=== PATIENT | female | born 1995 | race Caucasian/White ===

== ENCOUNTER 2017-05-13 21:43 | Inpatient (IN) | payer MEDICAID ==
[~2017-05-13] VITALS: Ht 167.6 cm; Wt 62.0 kg
--- NOTE | ~2017-05-13 | HP ---
Unit #: [id number] #: [id number] Patient: FRANKI HENDERSON [id number] [address] [address] [id number] I MR#: [id number] NAME: FRANKI HENDERSON ROOM: 02125 Age: 21 Sex: F Admission Date: 05/14/2017 : 1995 Attending Physician: Kimberly Beckett M.D. Referring Physician: No Primary Care Physician Primary Care Physician: No Primary Care Physician HISTORY AND PHYSICAL REVISED REPORT CHIEF COMPLAINT Pyelonephritis, abnormal CBC, dehydration. HISTORY This pleasant 21-year-old female with history of anemia, hepatitis C, is admitted for possible pyelonephritis. The patient was well until two days prior to admission when she developed myalgias, nausea, vomiting with decreased urinary output, diaphoresis, and low back pain bilaterally. Denies urinary symptoms with the above. She presents to this emergency department in sinus tachycardia, with significant pyuria although moderate squamous cells were seen on urinalysis. Labs are notable for normocytic anemia with significant leukocytosis. White blood count is 45 with a normal differential although moderate spherocytes are seen with slight Rouleau formation. In the ER, the patient was bolused with 2 L of saline and given 1 gm of IV Rocephin. Currently feels somewhat improved. The patient states that she was admitted to [facility] 09/2015 for anemia and underwent a bone marrow biopsy, does not know the results. Her mother required splenectomy for what sounds to be some sort of hemolytic anemia. As an aside, the patient does have a history of hepatitis C, was previously abusing heroin and methamphetamines. Now takes illicit pain pills but I believe has not used these for the past two to three days. PAST MEDICAL HISTORY 1. History of anemia requiring bone marrow biopsy, results are unknown. 2. Hepatitis C. ALLERGIES None. HOME MEDICATIONS None. FAMILY HISTORY Anemia with splenomegaly requiring splenectomy. SOCIAL HISTORY The patient lives with her grandmother. She smokes about a half pack per Unit #: [id number] #: [id number] Patient: FRANKI HENDERSON day of tobacco, does not drink alcohol. Was previously injecting heroin, no longer uses heroin. Is buying pain pills off the street, and does have a history of methamphetamine abuse. REVIEW OF SYSTEMS Notable for diaphoresis, myalgias, back pain, decreased urinary output, anemia, hepatitis C, polysubstance abuse. All other systems were reviewed and are otherwise negative. PHYSICAL EXAMINATION GENERAL APPEARANCE: Pleasant, mildly jaundiced appearing 21-year-old female, currently in no acute distress. VITAL SIGNS: Temperature 98.4, pulse 125, respirations 16, blood pressure 97/53. O2 saturation is 99% on room air. HEENT: Eyes PERRLA. Extraocular muscles are intact. Pharynx is benign. NECK: Supple without adenopathy or thyromegaly. CHEST: Clear. BACK: Without CVA tenderness. Negative straight leg raising on exam. CARDIAC: Normal S1 and S2 without murmur. ABDOMEN: Bowel sounds are present. No definite hepatosplenomegaly, tenderness or masses. EXTREMITIES: Without edema. Pedal pulses are present. Difficult for me to check for splinter hemorrhages over the fingernail beds due to nail wallisian. NEUROLOGIC: The patient is awake, alert, oriented. Cranial nerves are intact. Equal strength throughout. DIAGNOSTIC STUDIES LABORATORY: Hematocrit is 26.3, down from a hematocrit of 33.1 in November. White blood count is 45, was 19 in November. Normal MCV and platelet count. Differential of white blood cells show a left shift predominance but otherwise normal. However, slight Rouleau formation and moderate spherocytes are noted. A few atypical lymphocytes also noted. Coags normal. SMA-12 - BUN 28, sodium 131 with a potassium of 3.1, chloride 95, bilirubin of 6.7, down from 8.7 in November. Most of this is indirect bilirubin. Acetaminophen, salicylate and alcohol levels are all negligible. Lactic acid is normal as is lipase. Point of care beta hCG negative. Urine tox screen positive for amphetamines and opiates. Urinalysis - positive leukocyte esterase, nitrates, protein, bile with 10-25 white cells, 2+ bacteria, moderate squamous cells seen. IMAGING: Chest x-ray - no acute disease. CT scan does show splenomegaly and gallstones. ASSESSMENT 1. Questionable pyelonephritis. 2. Dehydration secondary to nausea and vomiting with hypokalemia. 3. Abnormal CBC including normocytic anemia and significant leukocytosis Unit #: [id number] #: [id number] Patient: BEATRIZ,FRANKI with splenomegaly noted on CT scan and jaundice. Rule out hemolytic anemia versus other causes. 4. Hepatitis C. 5. Polysubstance abuse. PLANS 1. IV fluids. 2. Blood, urine, throat cultures. 3. Check LDH, retic count, iron storers, B12, folic acid. 4. Consult hematology. 5. Obtain HIV testing and obtain YANNA along with monospot. 6. Will request bone marrow biopsy results from [facility] in 2014. 7. Replace potassium, check magnesium. 8. Antibiotics. Dictated by Kimberly Beckett M.D. AML/df TD: 05/14/2017 05:16 JOB #: [id number] CC: Roman/invision Please Delete HISTORY AND PHYSICAL Page 1 of 1 X Kimberly Beckett MD HISTORY AND PHYSICAL
--- NOTE | ~2017-05-13 | CO ---
Unit #: [id number] #: [id number] Patient: FRANKI HENDERSON [id number] [facility]. [place], [place] [address] [id number] Eliu MR#: [id number] NAME: FRANKI HENDERSON ROOM: [facility] Age: 21 Sex: F Admission Date: 05/14/2017 : 1995 Attending Physician: Manuel Lee M.D. Primary Care Physician: Kimberly Beckett M.D. Consultation Date: 05/14/2017 CONSULTATION REPORT REASON FOR EVALUATION Anemia, please evaluate. HISTORY OF PRESENT ILLNESS This 21-year-old lady who is currently fairly sedated is only able to answer yes and periodically no and unable to give me much of any history, so the majority of this history was obtained from the chart. Basically, she has been in [facility] where bone marrow aspirate biopsy has been done twice, and she thinks she was told something is destroying her blood. But that is all the diagnosis she knows. She does have a history of hepatitis C and substance abuse to the extreme level from the chart. No past history in this hospital. Otherwise, past history is mainly remarkable for hepatitis C and a hole in her heart according to her. I do not have any documentation. HOME MEDICATIONS None. ALLERGIES None. FAMILY HISTORY Mother had splenectomy for anemia and does not know more than that. SOCIAL HISTORY Lives with grandmother. Smokes a half a pack. No alcohol usage. States that she used heroin currently unknown, and I did not pursue it further. REVIEW OF SYSTEMS Not obtainable mainly due to her drowsiness and states that she is okay. Otherwise, it was not obtainable. PHYSICAL EXAMINATION GENERAL: She looks pale and healthy appearing. LYMPHATICS: No palpable nodes. LUNGS: Crackles. ABDOMEN: I could not appreciate a palpable spleen, although it was difficult. CENTRAL NERVOUS SYSTEM: Difficult to evaluate. PELVIC/BREASTS: Exams not performed. DIAGNOSTIC STUDIES LABORATORY: Glucose 82, BUN 15, creatinine 0.6, sodium 133, potassium 3.2, chloride 103, CO2 of 25, calcium 8.8, magnesium 1.9, albumin 3.8, Unit #: [id number] #: [id number] Patient: FRANKI HENDERSON total bilirubin 4.5, direct bilirubin 1.2, and bilirubin indirect 5.5, AST 38 normal, ALT 28 normal, and alkaline phosphatase 70 which is normal. LDH is mildly elevated at 223. B12 of 626 and folate of 2.7. Ferritin 576 and transferrin of 169. Lactic acid 1.2. Alcohol less than 5. Hemoglobin 8.4, hematocrit 23.4, white count 31,000, and platelets 240,000 with 82% neutrophils, 12% lymphocytes, and reticulocyte count of 6.6. Peripheral smear was examined: Normochromic, normocytic RBCs. No schistocytes. No helmet cells. White cells appear increased in number, mainly left shift, with severe bandemia. No blasts seen. Platelets are slightly increased in number. Some platelets are in small clusters, but overall, platelet size is normal. IMPRESSION AND PLAN This lady most probably has a low-grade hemolytic anemia, type to be determined. She already had two bone marrows done. We need to track down these reports. As the hemoglobin is in the 8-9 range, would rather wait and watch. Agree with IV antibiotics, full support, and withdraw all measures. I will recheck CBC, CMP, LDH, reticulocyte count, haptoglobin, and Deandre direct and indirect in the morning and await the bone marrow results, and depending on the findings, proceed further. Dictated by... Rebel Kiser M.D. SPS/cece TD: 05/14/2017 17:59 JOB #: [id number] CONSULTATION REPORT Page 1 of 1 X Rebel Kiser MD CONSULTATION REPORT
--- NOTE | ~2017-05-13 | DS ---
Unit #: [id number] #: [id number] Patient: FRANKI HENDERSON [id number] [address] [address] [id number] I MR#: [id number] NAME: FRANKI HENDERSON ROOM: 241 Age: 21 Sex: F Admission Date: 05/14/2017 : 1995 Discharge Date: 05/16/2017 Attending Physician: Manuel Lee M.D. DISCHARGE SUMMARY PRIMARY DIAGNOSIS Septic shock. SECONDARY DIAGNOSES 1. Pyelonephritis. 2. Possible dehydration. 3. Polysubstance abuse with active heroin and methamphetamine abuse, which she admitted to [facility] after her initial admission evaluation. 4. Hepatitis C. 5. Low-grade hemolytic anemia. HOSPITAL COURSE The patient was admitted to the hospital. Became hypotensive shortly after initial admission and following transition to an ICU admission and had a central line placed. Consultation was obtained with Dr. Agustin Perez with Pulmonology and the patient was placed on pressors and high-dose IV fluids as well as continuing broad-spectrum antibiotics. The patient clinically improved from her infection, did not have any positive blood or urine cultures. Streptococcal throat swab was negative. The patient did not have any flank tenderness after being in the hospital for 36 hours. The patient's hemoglobin during her hospitalization ranged from 7.4-9.5, but on the day of her leaving against medical advice, her hemoglobin was 8.6. She was seen in consultation with Dr. Rebel Kiser with Hematology. We were able to get her bone marrow biopsy results from [facility], which showed some increased megakaryocytes, but otherwise normal trilineage hematopoiesis. We started her on IV steroids and she got 3-4 doses out of a planned course of eight doses prior to the patient leaving against medical advice. The patient was explained the risks of leaving against medical advice. She left without any antibiotics or steroids and I strongly advised her to stay in the hospital to receive IV steroids and IV antibiotics for another 24 hours with expected discharge on the . She refused. She understood the risks as documented elsewhere in the medical record. DISCHARGE DISPOSITION Against medical advice to home. DISCHARGE STATUS Guarded. DISCHARGE DIET AND ACTIVITY Unit #: [id number] #: [id number] Patient: FRANKI HENDERSON Not applicable as patient left against medical advice. DISCHARGE FOLLOWUP Not applicable as patient left against medical advice. DISCHARGE MEDICATIONS Patient left without any prescriptions as she was left against medical advice as opposed to being formally discharged. Dictated by... Manuel Lee M.D. BETTY/karoline TD: 05/20/2017 01:26 JOB #: [id number] DISCHARGE SUMMARY Page 1 of 1 X Manuel Lee MD X DISCHARGE SUMMARY
--- NOTE | ~2017-05-13 | CR72 ---
[facility] A Service of [facility] RADIOLOGY TEXT RESULTS PATIENT: FRANKI HENDERSON LOCATION: [address] : [birth year] UNIT #: [id number] AGE: [address]: Manuel Lee MD SEX: F ORDER DR: [id number] [facility] [address] [place], [place] [address] [id number] I MR#: [id number] Acc #: [id number] NAME: FRANKI HENDERSON : 1995 SEX: F STUDY DATE/TIME: 05/14/2017 1:15 UNIT: [facility] ROOM: [facility] STUDY DESCRIPTION: CR Chest Single View Portable Attending Physician: Manuel Lee M.D. Referring Physician: No Primary Care Physician Ordering Physician: Omid Hyde D.O. Primary Care Physician: Primary Care Physician No MEDICAL IMAGING REPORT This report is preliminary unless electronic signature is present EXAM Portable chest INDICATIONS Chest pain for the past 2 days. PROCEDURE Frontal view of the chest. COMPARISON STUDIES 01/19/2012 FINDINGS Heart size within normal limits. No dense consolidation pleural fluid or evidence for pneumothorax. IMPRESSION No active process Dictated by... Herve Cano M.D. THIS IS AN ELECTRONICALLY VERIFIED REPORT Herve Cano M.D. at 05/14/2017 9:51 PM BANDAR/attila TD: 05/14/2017 13:39 JOB #: [id number] MEDICAL IMAGING REPORT Page 1 of 1 COPY
--- NOTE | ~2017-05-13 | CT4 ---
[facility] A Service of [facility] RADIOLOGY TEXT RESULTS PATIENT: FRANKI HENDERSON LOCATION: CICCU2 CICCU2-10 : [birth year] UNIT #: [id number] AGE: [address]: Manuel Lee MD SEX: F ORDER DR: [id number] [facility] [address] [place], [place] [address] [id number] I MR#: [id number] Acc #: [id number] NAME: FRANKI HENDERSON : 1995 SEX: F STUDY DATE/TIME: 05/14/2017 2:10 UNIT: CICCU2 ROOM: [facility] STUDY DESCRIPTION: CT Abd and Pelv Wo Cont Attending Physician: Manuel Lee M.D. Referring Physician: No Primary Care Physician Ordering Physician: Omid Hyde D.O. Primary Care Physician: No Primary Care Physician MEDICAL IMAGING REPORT This report is preliminary unless electronic signature is present EXAM CT abdomen and pelvis without contrast INDICATION Bilateral flank pain for the past [address] of the abdomen and pelvis. This CT exam was performed with one or more of the following radiation dose reduction techniques: Automatic exposure control, adjustment of mA and/or kV according to patient size, and iterative reconstruction. COMPARISON 07/28/2015 FINDINGS ABDOMEN WITHOUT CONTRAST: Included lung bases are clear. Spleen enlarged measuring 15.8 cm. Kidneys, adrenal glands, pancreas unremarkable. Multiple stones in the gallbladder but no evidence for active inflammation. Bowel loops are nondilated. Moderate colonic stool burden. Appendix normal. PELVIS WITHOUT CONTRAST: No radiodense bladder calculus. No pelvic mass. IMPRESSION 1. No acute findings in the abdomen or pelvis. 2. Splenomegaly. Uncomplicated cholelithiasis. Dictated by... Herve Cano M.D. [facility] A Service [facility] RADIOLOGY TEXT RESULTS PATIENT: FRANKI HENDERSON LOCATION: CICCU2 CICCU2-10 : [birth year] UNIT #: [id number] AGE: [address]: Manuel Lee MD SEX: F ORDER DR: THIS IS AN ELECTRONICALLY VERIFIED REPORT Herve Cano M.D. at 05/14/2017 9:50 PM BANDAR/jadiel TD: 05/14/2017 13:53 JOB #: [id number] MEDICAL IMAGING REPORT Page 1 of 1 COPY
--- NOTE | ~2017-05-13 | A ---
[facility] Nutrition Therapy DATE: 05/15/17 Patient: FRANKI HENDERSON Physician: REINALDO Address: [address] [place] [address] Room/Bed: [address], Zip: [place] [address] Admit Date: 05/14/17 Date of : [birth year] Height: 5 6 Weight: 136 62 NUTRITIONAL ASSESSMENT: REASON: PT SEEN FOR 5 NUTRITION RISK PT RE: WEIGHT LOSS + POOR PO INTAKE, ALSO CONSULT RECEIVED PT IS 21 Y.O. FEMALE ADMITTED FOR PYELONEPHRITIS, ANEMIA PMH: POLYSUBSTANCE ABUSE, HEPATITIS C, ANEMIA Anthropometrics: 5'6", WT: 136# (PER PT) (62 KG), BMI: 21.9 -WEIGHTS HAVE RANGED 136-150# SINCE ADMIT Labs: BUN: 6, CREAT: 0.4, ALB: 2.9, LIPASE: 19 Meds: MVI, KCL, THERAPEUTIC FORMULA, MAG SULFATE, FOLIC ACID, PHENERGAN, ZOFRAN, THIAMINE I/O & Bowel function: 4077/2300 Skin Integrity: NO KNOWN SKIN ISSUES Estimated Nutrition Needs: INCREASED NEEDS 2' WEIGHT LOSS NOTED, DECREASED PO INTAKE AND APPETITE Assessment: CHART REVIEWED AND EVENTS NOTED. PT SEEN FOR 5 NUTRITION RISK PT RE: POOR PO INTAKE AND WEIGHT LOSS, ALSO CONSULT RECEIVED. PT REPORTS DECREASED PO INTAKE 2' DECREASED APPETITE PAST SEVERAL WEEKS D/T FEELING DEPRESSED. PT REPORTS MINIMAL PO INTAKE WHEN DEPRESSED. PT REPORTS UBW IS ~200#, NOTES LOSING WEIGHT SINCE JULY 2016. THIS RD ENCOURAGED SMALL FREQUENT MEALS + SUPPLEMENT INTAKE, PT AGREED TO ENSURE ENLIVE SHAKES BID, RD TO ORDER. RD ALSO ENCOURAGED PT TO SEEK A PSYCHIATRIST. RD ALSO ENCOURAGED TO CUT BACK ON DRUGS. PT AGREED, REPORTED NO DIET QUESTIONS AT THIS TIME. RD TO FOLLOW. SEE RECOMMENDATIONS BELOW. PER CHART, PLANS FOR PT TO TRANSFER TO TELEMETRY Dx: UNINTENTIONAL WEIGHT LOSS R/T DEPRESSION, DECREASED PO INTAKE AND APPETITE AEB PT REPORT ABOVE, WEIGHT LOSS NOTED SINCE JULY 2016 Intervention: 1. REGULAR DIET + NO CAFFEINE 2. ENSURE SHAKES BID 3. RD CONSULT Monitoring, Evaluation and Goals: 1. ORAL INTAKE; CONSUME/TOLERATE >50% OF MEALS AND SUPPLEMENTS 2. WEIGHTS; PREVENT UNINTENTIONAL WEIGHT LOSS 3. LABS; WNL [facility] Nutrition Therapy DATE: 05/15/17 Patient: FRANKI HENDERSON Physician: REINALDO Address: [address] [place] [address] Room/Bed: [address], Zip: [place] [address] Admit Date: 05/14/17 Date of : [birth year] Height: 5 6 Weight: 136 62 MONITOR ABOVE GOALS Recommendations: 1. PLEASE ORDER STRAWBERRY ENSURE SHAKES BID W/MEALS 2. APPRECIATE FAMILY AND STAFF TO ENCOURAGE PO INTAKE 3. CONSIDER NETWORK DIRECTOR/PARACHUTE/COMBATANT DIVER OFFICER/PSYCHIATRIST CONSULT RE: PT REPORT ABOVE RD WILL F/U PER PROTOCOL PT IS MODERATELY COMPROMISED Respectfully, VERO ALFARO MS, RD, LD [employer] and Nutritional Services [facility] cc: client file
--- NOTE | ~2017-05-13 | OR ---
Unit #: [id number] #: [id number] Patient: FRANKI HENDERSON [id number] [address] [address] [id number] I MR#: [id number] NAME: FRANKI HENDERSON ROOM: [facility] Date of Procedure: 05/14/2017 Admission Date: 05/14/2017 Surgeon: Demetris Perez M.D. : 1995 Attending Physician: Manuel Lee M.D. Referring Physician: Primary Care Physician No Primary Care Physician: Primary Care Physician No PROCEDURE OPERATIVE NOTE PROCEDURE Right intrajugular venous catheter placement with ultrasound guidance. INDICATION FOR PROCEDURE Septic shock. PREMEDICATION None. COMPLICATIONS None. DESCRIPTION OF THE PROCEDURE An informed consent was obtained from the patient herself after explaining the benefits and risks of this procedure. The patient was prepped and positioned in a proper way. Then, her right neck was cleaned with chlorhexidine and then a body drape was applied. Then, with the ultrasound guidance, a needle was inserted in the right IJ until blood flow was obtained. Then, a guidewire was inserted and the needle was removed. Then, a dilator was used and the catheter eventually was inserted over the guidewire which was removed. Patient tolerated her procedure well with no immediate complication. STAT chest x-ray is confirming placement at the time of dictation. Dictated by... Demetris Perez M.D. EA/adriano TD: 05/14/2017 21:43 JOB #: [id number] Unit #: [id number] #: [id number] Patient: FRANKI HENDERSON PROCEDURE OPERATIVE NOTE Page 1 of 1 X DEMETRIS GRAY MD X PROCEDURE OPERATIVE NOTE
--- NOTE | ~2017-05-13 | CO ---
Unit #: [id number] #: [id number] Patient: FRANKI HENDERSON [id number] [address] [address] [id number] I MR#: [id number] NAME: FRANKI HENDERSON ROOM: CIC2 Age: 21 Sex: F Admission Date: 05/14/2017 : 1995 Attending Physician: Manuel Lee M.D. Consultation Date: 05/14/2017 CONSULTATION REPORT REASON FOR CONSULT ICU management. CHIEF COMPLAINT Nausea, vomiting, and back pain. HISTORY OF PRESENT ILLNESS This is a pleasant 21-year-old female with a past medical history significant for hepatitis C, anemia, and polysubstance abuse, who presented to the emergency room for evaluation of nausea, vomiting, and body aches for the last couple of days. Patient also had a high fever at home, but she did not check it. Patient also noted decreased oral intake and minimal urine output for the last 24 hours. Patient also had some dysuria and urgency to use the bathroom. In the emergency room, patient was initially in sinus tachycardia. However, later she went in shock with blood pressure in the mid 60s to 70s. PAST MEDICAL HISTORY 1. Hepatitis C. 2. Anemia. 3. Polysubstance abuse. ALLERGIES None. HOME MEDICATIONS None. FAMILY HISTORY Anemia with splenomegaly requiring splenectomy. SOCIAL HISTORY Patient lives with her grandmother. She smokes about a half pack per day. No history of alcohol abuse. She has a history of heroin abuse in the past. She currently has positive methamphetamine abuse. REVIEW OF SYSTEMS A 12-point review of systems was obtained and was negative except for what was mentioned in the History of Present Illness. PHYSICAL EXAMINATION GENERAL: Patient is in distress and anxious. VITAL SIGNS: Blood pressure is 79/43, respiratory rate 28, and O2 Unit #: [id number] #: [id number] Patient: FRANKI HENDERSON saturation 98% on room air. HEENT: Atraumatic, normocephalic. PERRLA. EOMI. NECK: Supple. No JVD. No lymphadenopathy. CHEST: Clear to auscultation bilaterally. HEART: S1 and S2. No murmur, gallops, or rubs. ABDOMEN: Soft and nontender. Bowel sounds positive. No hepatosplenomegaly. EXTREMITIES: No edema or cyanosis. SKIN: No rashes. CENTRAL NERVOUS SYSTEM: Awake, alert, and oriented x3. No focal motor/sensory deficits. DIAGNOSTIC STUDIES LABORATORY: Creatinine 0.6, sodium 133, and potassium 3.2. White blood count 44.9. IMAGING: Reviewed and noted by me. ASSESSMENT 1. Septic shock. 2. Pyelonephritis. 3. Anemia. 4. Splenomegaly. 5. Polysubstance abuse. 6. Hyponatremia. 7. Hypokalemia. 8. Leukocytosis. PLAN 1. Patient is ill-appearing and very anxious. She will be admitted to the ICU for close observation. 2. IV fluids per sepsis guidelines. 3. Broad spectrum antibiotics pending culture. 4. Pressors and midodrine to keep systolic more than 95. 5. Place central line in the emergency room. 6. Hematology evaluation for splenomegaly and anemia. I would like to thank Dr. Lee for allowing me to be part of this patient's care. Dictated by... Ha Martin TD: 05/14/2017 21:24 JOB #: [id number] CONSULTATION REPORT Page 1 of 1 X DEMETRIS GRAY MD CONSULTATION REPORT
--- NOTE | ~2017-05-13 | HP ---
Unit #: [id number] #: [id number] Patient: FRANKI HENDERSON [id number] [address] [address] [id number] I MR#: [id number] NAME: FRANKI HENDERSON ROOM: 241 Age: 21 Sex: F Admission Date: 05/14/2017 : 1995 Attending Physician: Manuel Lee M.D. Referring Physician: No Primary Care Physician Primary Care Physician: No Primary Care Physician HISTORY AND PHYSICAL ADDENDUM Will continue Rocephin IV. Dictated by Kimberly Beckett M.D. AML/ts TD: 05/17/2017 06:29 JOB #: [id number] HISTORY AND PHYSICAL Page 1 of 1 X Kimberly Beckett MD HISTORY AND PHYSICAL
--- NOTE | ~2017-05-13 | CR72 ---
[facility] A Service of [facility] & [facility] RADIOLOGY TEXT RESULTS PATIENT: FRANKI HENDERSON LOCATION: [address] : [birth year] UNIT #: [id number] AGE: [address]: Manuel Lee MD SEX: F ORDER DR: [id number] [facility] [address] [place], [place] [address] [id number] MR#: [id number] Acc #: [id number] NAME: FRANKI HENDERSON : 1995 SEX: F STUDY DATE/TIME: 05/14/2017 UNIT: [facility] ROOM: [facility] STUDY DESCRIPTION: CR Chest Single View Portable Attending Physician: Manuel Lee M.D. Ordering Physician: Omid Hyde D.O. MEDICAL IMAGING REPORT This report is preliminary unless electronic signature is present EXAM Chest portable 05/14/2017 1115 hours HISTORY 21-year-old with pyelonephritis and anemia, central line placement today. COMPARISON 05/14/2017 at 0115 hours FINDINGS Single portable upright view demonstrates a new right central venous line with tip terminating at the junction of SVC and right atrium. There is no pneumothorax. Lungs are clear. IMPRESSION New right central venous line terminates at the junction of SVC and right atrium. There is no pneumothorax. The lungs are clear and there are no effusions. Dictated by... Daniella Flannery M.D. THIS IS AN ELECTRONICALLY VERIFIED REPORT Daniella Flannery M.D. at 05/15/2017 9:23 AM PRABHAKAR/yogesh TD: 05/14/2017 20:29 JOB #: [id number] MEDICAL IMAGING REPORT Page 1 of 1 COPY
[2017-05-13 23:47] LABS: INR 1.2; PARTIAL THROMBOPLASTIN TIME 28.4 SECONDS (23.5-31.3); PROTHROMBIN TIME (PATIENT) 12.7 SECONDS (10.0-11.7)
[2017-05-13 23:50] LABS: ALBUMIN SERUM 4.3 g/dL (3.5-5.0); ALKALINE PHOSPHATASE 74 U/L (32-92); ALT (SGPT) 27 U/L (10-40); AST (SGOT) 35 U/L (10-42); BILIRUBIN, DIRECT 1.2 mg/dL (0.0-0.2); BILIRUBIN,INDIRECT 5.5 mg/dL (0.0-0.9); BILIRUBIN,TOTAL 6.7 mg/dL (0.2-2.0); BLOOD UREA NITROGEN 28 mg/dL (9-23); CALCIUM SERUM 9.1 mg/dL (8.4-10.2); CARBON DIOXIDE 27 mmol/L (22-31); CHLORIDE 95 mmol/L (100-111); CREATININE SERUM 0.8 mg/dL (0.6-1.4); GLUCOSE FASTING 101 mg/dL (70-110); LIPASE 19 U/L (22-51); POTASSIUM 3.1 mmol/L (3.5-5.1); PROTEIN TOTAL SERUM 7.7 g/dL (6.0-8.3); SALICYLATE <4.0 mg/dL; SODIUM 131 mmol/L (135-145)
[2017-05-13 23:52] LABS: ACETAMINOPHEN <10 ug/mL; ALCOHOL BLOOD <5 mg/dL ([, 0])
[2017-05-14 00:02] LABS: BASOPHIL# 0.1 X10e3 (0-0.3); BASOPHIL% 0.1 % (0-2.5); EOSINOPHIL# 0.1 X10e3 (0-0.7); EOSINOPHIL% 0.3 % (0.0-7.0); HEMATOCRIT 26.3 % (35.0-45.0); HEMOGLOBIN 9.5 gm/dL (12.0-16.0); LYMPHOCYTE# 3.6 X10e3 (1.0-3.5); MEAN CELL VOLUME 86.8 FL (83-96); MEAN CORPUSCULAR HEMOGLOBIN 31.2 PG (28-34); MEAN CORPUSCULAR HGB CONC 35.9 g/dL (30-36); MEAN PLATELET VOLUME 8.2 FL (6.5-11.5); MONOCYTE# 1.8 X10e3 (0-1.0); NEUTROPHIL# 39.3 X10e3 (1.5-7.1); NEUTROPHIL% 87.6 % (40-75); PLATELET COUNT 265 X10e3 (140-420); RED BLOOD COUNT 3.03 X10e (3.90-5.30); WHITE BLOOD COUNT 44.9 X10e3 (4.0-10.5)
[2017-05-14 00:03] LABS: DIFF IND YES
[2017-05-14 00:11] LABS: DIFFERENTIAL COMMENT FEW ATYLYMPH; PLATELET ESTIMATE NORMAL (NORMAL)
[2017-05-14 00:13] LABS: ANISOCYTOSIS SL; ROULEAUX SLIGHT
[2017-05-14 00:14] LABS: MICROCYTOSIS MOD; SPHEROCYTE MOD
[2017-05-14 00:22] LABS: URINE SOURCE CLEAN CATCH
[2017-05-14 00:26] LABS: URINE APPEARANCE CLOUDY; URINE BLOOD NEG (NEG); URINE GLUCOSE NEG (NEG); URINE KETONE NEG (NEG); URINE LEUKOCYTE ESTERASE 1+ (NEG); URINE NITRATE POS (NEG); URINE PROTEIN 1+ (NEG); URINE SPECIFIC GRAVITY 1.029 (1.003-1.035)
[2017-05-14 00:29] LABS: CULTURE INDICATED? YES; URINE BACTERIA AUWI 2+ (NEGATIVE); URINE SQUAMOUS EPITHELIAL CELL MOD /[HPF]
[2017-05-14 00:36] LABS: URINE BILIRUBIN POS (NEG)
[2017-05-14 00:37] LABS: URINE COLOR ORANGE
[2017-05-14 00:44] LABS: URINE MUCUS PRESENT
[2017-05-14 00:50] LABS: AMPHETAMINE POS (NEG); BARBITURATES NEG (NEG); BENZODIAZEPINES NEG (NEG); COCAINE NEG (NEG); MARIJUANA NEG (NEG); OPIATES POS (NEG); TRICYCLIC ANTIDEPRESSANTS NEG (NEG); U METHADONE NEG (NEG)
[2017-05-14] MEDS ORDERED: NO MEDICATIONS (03:21)
[2017-05-14 08:00] LABS: BASOPHIL# 0.1 X10e3 (0-0.3); BASOPHIL% 0.2 % (0-2.5); EOSINOPHIL# 0.2 X10e3 (0-0.7); EOSINOPHIL% 0.7 % (0.0-7.0); HEMATOCRIT 23.4 % (35.0-45.0); HEMOGLOBIN 8.4 gm/dL (12.0-16.0); LYMPHOCYTE# 3.8 X10e3 (1.0-3.5); LYMPHOCYTE% 12.2 % (17.0-45.0); MEAN CELL VOLUME 86.6 FL (83-96); MEAN CORPUSCULAR HGB CONC 35.8 g/dL (30-36); MEAN PLATELET VOLUME 8.2 FL (6.5-11.5); MONOCYTE# 1.4 X10e3 (0-1.0); MONOCYTE% 4.5 % (3.0-12.0); NEUTROPHIL# 25.6 X10e3 (1.5-7.1); NEUTROPHIL% 82.4 % (40-75); PLATELET COUNT 240 X10e3 (140-420); RED CELL DISTRIBUTION WIDTH 20.2 % (11.0-15.5); RETICULOCYTE 6.6 % (0.5-2.8)
[2017-05-14 08:03] LABS: DIFF IND NO
[2017-05-14 08:25] LABS: PROCALCITONIN 57.37 NG/ML
[2017-05-14 08:43] LABS: FOLATE (FOLIC ACID) 2.7 ng/mL (>5.8)
[2017-05-14 08:59] LABS: ALBUMIN SERUM 3.8 g/dL (3.5-5.0); CALCIUM SERUM 8.8 mg/dL (8.4-10.2); CREATININE SERUM 0.6 mg/dL (0.6-1.4); GLOM FILT RATE Estimated 128.5 mL/min (>60); MAGNESIUM 1.9 mg/dL (1.6-3.0); POTASSIUM 3.2 mmol/L (3.5-5.1); PROTEIN TOTAL SERUM 6.8 g/dL (6.0-8.3)
[2017-05-14 09:00] LABS: BILIRUBIN,TOTAL 4.5 mg/dL (0.2-2.0)
[2017-05-14 09:03] LABS: FOLATE (FOLIC ACID) 2.6 ng/mL (>5.8)
[2017-05-15 06:16] LABS: BASOPHIL# 0.1 X10e3 (0-0.3); BASOPHIL% 0.7 % (0-2.5); EOSINOPHIL# 0.1 X10e3 (0-0.7); EOSINOPHIL% 0.7 % (0.0-7.0); HEMOGLOBIN 7.4 gm/dL (12.0-16.0); LYMPHOCYTE# 2.8 X10e3 (1.0-3.5); LYMPHOCYTE% 29.3 % (17.0-45.0); MEAN CELL VOLUME 87.9 FL (83-96); MEAN CORPUSCULAR HEMOGLOBIN 31.1 PG (28-34); MEAN CORPUSCULAR HGB CONC 35.3 g/dL (30-36); MEAN PLATELET VOLUME 8.3 FL (6.5-11.5); MONOCYTE# 0.6 X10e3 (0-1.0); MONOCYTE% 6.6 % (3.0-12.0); NEUTROPHIL% 62.7 % (40-75); PLATELET COUNT 207 X10e3 (140-420); RED BLOOD COUNT 2.38 X10e (3.90-5.30)
[2017-05-15 06:27] LABS: WHITE BLOOD COUNT 9.6 X10e3 (4.0-10.5)
[2017-05-15 06:28] LABS: DIFF IND YES
[2017-05-15 06:33] LABS: ALBUMIN SERUM 2.9 g/dL (3.5-5.0); CALCIUM SERUM 8.5 mg/dL (8.4-10.2); CREATININE SERUM 0.4 mg/dL (0.6-1.4); GLOM FILT RATE Estimated 146.8 mL/min (>60); MAGNESIUM 1.7 mg/dL (1.6-3.0); POTASSIUM 3.8 mmol/L (3.5-5.1); PROTEIN TOTAL SERUM 5.7 g/dL (6.0-8.3)
[2017-05-15 06:35] LABS: BILIRUBIN,TOTAL 2.1 mg/dL (0.2-2.0)
[2017-05-15 12:24] LABS: ANISOCYTOSIS MOD; PLATELET ESTIMATE NORMAL (NORMAL)
[2017-05-16 07:39] LABS: BASOPHIL% 0.1 % (0-2.5); HEMATOCRIT 24.8 % (35.0-45.0); HEMOGLOBIN 8.6 gm/dL (12.0-16.0); LYMPHOCYTE# 1.4 X10e3 (1.0-3.5); LYMPHOCYTE% 11.3 % (17.0-45.0); MEAN CELL VOLUME 89.2 FL (83-96); MEAN CORPUSCULAR HEMOGLOBIN 31.1 PG (28-34); MEAN CORPUSCULAR HGB CONC 34.9 g/dL (30-36); MEAN PLATELET VOLUME 7.9 FL (6.5-11.5); MONOCYTE# 0.2 X10e3 (0-1.0); MONOCYTE% 1.6 % (3.0-12.0); NEUTROPHIL# 11.1 X10e3 (1.5-7.1); PLATELET COUNT 267 X10e3 (140-420); RED BLOOD COUNT 2.78 X10e (3.90-5.30); RED CELL DISTRIBUTION WIDTH 20.7 % (11.0-15.5); WHITE BLOOD COUNT 12.7 X10e3 (4.0-10.5)
[2017-05-16 07:44] LABS: DIFF IND NO
[2017-05-16 08:05] LABS: CALCIUM SERUM 8.8 mg/dL (8.4-10.2); CREATININE SERUM 0.4 mg/dL (0.6-1.4); GLOM FILT RATE Estimated 146.8 mL/min (>60); MAGNESIUM 1.9 mg/dL (1.6-3.0); POTASSIUM 3.7 mmol/L (3.5-5.1)
[2017-05-19 23:27] LABS: ANA SCREEN Negative (Negative)
== END 2017-05-16 10:38 | disposition left against medical advice (07) | DRG 871 ==
LOC: CED 21:43 → CEDOF 05-14 03:45 → CED 05-14 03:55 → CEDOF 05-14 08:30 → CICCU2 05-14 12:19 → C2A 05-15 19:57
PROVIDERS: Emergency Medicine; Internal Medicine
PROC: 05HM33Z Insertion of Infusion Device into Right Internal Jugular Vein, Percutaneous Approach (ICD-10-PCS; principal; 2017-05-14)
PROC: B543ZZA Ultrasonography of Right Jugular Veins, Guidance (ICD-10-PCS; 2017-05-14)
DX: A41.9 Sepsis, unspecified organism (principal); R65.21 Severe sepsis with septic shock; D58.9 Hereditary hemolytic anemia, unspecified; E87.1 Hypo-osmolality and hyponatremia; E86.0 Dehydration; N10 Acute pyelonephritis; F15.10 Other stimulant abuse, uncomplicated; F11.10 Opioid abuse, uncomplicated; B19.20 Unspecified viral hepatitis C without hepatic coma; E87.6 Hypokalemia; R11.2 Nausea with vomiting, unspecified; F17.210 Nicotine dependence, cigarettes, uncomplicated
CPT/HCPCS: 36415; 71010; 74176; 80048; 80053; 80076; 80307; 81003; 82308; 82607; 82728; 82746; 83010; 83540; 83550; 83605; 83615; 83690; 83735; 84703; 85025; 85044; 85610; 85730; 86038; 86039; 86308; 86592; 86850; 86880; 87040; 87086; 87651; 87806; 96361; 96365; 99285; G0480; J0696; J1650; J2930; J3475